=== PATIENT | female | born 1945 | race Caucasian/White ===

== ENCOUNTER 2016-12-08 18:50 | Emergency (ER) | payer OTHER, BC ==
[~2016-12-08] VITALS: Ht 157.5 cm; Wt 60.3 kg
[~2016-12-08 18:50] MED LIST: ADVAIR 500/501 DISK IH; CALCIUM 600 +1 EAC1 PO; CYMBALTA30 MG PO; DIAZEPAM5 MG PO; LISINOPRIL-HCT1 EAC3 PO; LORATADINE10 M2 PO; PERCOCET 5/31 TABLET PO; PREDNISONE20 MG PO; SPIRIVA RESPIMAT4 GM IH; VENTOLIN HFA18 GM IH; VITRUM SENIOR1 EAC2 PO
[2016-12-08] MEDS ORDERED: CLEOCIN150 MG PO (20:54)
[2016-12-08 21:36] VITALS: BP 141/82
== END 2016-12-08 21:37 | disposition home or self-care (01) ==
LOC: EME 18:50
DX: S81.811A Laceration without foreign body, right lower leg, initial encounter (principal); S80.01XA Contusion of right knee, initial encounter; Z23 Encounter for immunization; W45.8XXA Other foreign body or object entering through skin, initial encounter; Y92.009 Unspecified place in unspecified non-institutional (private) residence as the place of occurrence of the external cause; Z88.0 Allergy status to penicillin
CPT/HCPCS: 73564; 99281; 99284; S0020